=== PATIENT | female | born 1980 | race Two or more races ===

== ENCOUNTER 2021-06-09 18:12 | Emergency (ER) | payer OTHER ==
[~2021-06-09] VITALS: Ht 160 cm; Wt 102.1 kg
[2021-06-09] MEDS ORDERED: ADVIL (18:36)
== END 2021-06-09 19:22 | disposition home or self-care (01) ==
LOC: ER 18:12
DX: S99.911A Unspecified injury of right ankle, initial encounter (principal); M77.51 Other enthesopathy of right foot and ankle; X58.XXXA Exposure to other specified factors, initial encounter; Y93.9 Activity, unspecified; Y92.9 Unspecified place or not applicable; Y99.9 Unspecified external cause status

== ENCOUNTER 2023-07-10 17:22 | Emergency (ER) | payer OTHER ==
[~2023-07-10] VITALS: Ht 157.5 cm; Wt 108.9 kg
[~2023-07-10 17:22] MED LIST: ADVIL
[2023-07-10 19:34] LABS: HEMATOCRIT 38.9 % (36.0-45.00); HEMOGLOBIN 13.6 g/dL (12.0-15.00); MEAN CELL VOLUME 86.3 fL (80.00-100.00); MEAN CORPUSCULAR HEMOGLOBIN 30.3 pg (27.00-32.0); MEAN CORPUSCULAR HGB CONC 35.1 g/dl (32.0-36.0); PLATELET COUNT 235 K/uL (150-450); RED CELL DISTRIBUTION WIDTH 13.4 % (11.5-14.5)
[2023-07-10 19:53] LABS: CALCIUM 9.4 mg/dL (8.5-10.1); CREATININE SERUM 0.67 mg/dL (0.55-1.02); GFR 96.99; POTASSIUM 4.04 mEq/L (3.5-5.1)
[2023-07-10 20:38] LABS: URINE APPEARANCE Clear; URINE BILIRRUBIN Negative (NEGATIVE); URINE BLOOD Small; URINE COLOR Yellow; URINE GLUCOSE Negative (NEGATIVE); URINE LEUKOCYTE Negative; URINE NITRATE Negative; URINE PROTEIN Negative (NEGATIVE); URINE UROBILINOGEN 0.2 E.U./dl
[2023-07-10 20:42] LABS: URINE BACTERIA 883.1 uL (0.0-1933); URINE EPITHELIAL CELLS 15.5 uL (0.0-38.8); URINE RBC 19.9 uL (0.0-20.8); URINE WBC 9.2 uL (0.0-23.2)
[2023-07-10] MEDS ORDERED: DIPHENHYDRAMINE HCL 50 MG/ML VIAL 1ML IM STA (20:55)
== END 2023-07-10 21:21 | disposition home or self-care (01) ==
LOC: ER 17:22
PROVIDERS: General Practice
DX: M54.9 Dorsalgia, unspecified (principal)

== ENCOUNTER 2024-05-15 12:17 | Emergency (ER) | payer OTHER ==
[~2024-05-15] VITALS: Ht 160 cm; Wt 108.9 kg
[2024-05-15] MEDS ORDERED: ONDANSETRON HCL 2 MG/ML VIAL IV ONE (14:30)
[2024-05-15] MEDS ORDERED: FAMOTIDINE/PF 20 MG/2 ML VIAL IV ONE (14:30)
[2024-05-15] MEDS ORDERED: LACTOBACILLUS ACIDOPHILUS 1 CAP CAP PO ONE ×2 (14:30→15:13)
[2024-05-15] MEDS ORDERED: SUCRALFATE 1 G TABLET PO ONE (14:30)
[2024-05-15] MEDS ORDERED: 0.9 % SODIUM CHLORIDE 500 ML IV ONE (14:30)
[2024-05-15] MEDS ORDERED: ONDANSETRON HCL 2 MG/ML VIAL ONE (15:12)
[2024-05-15] MEDS ORDERED: FAMOTIDINE/PF 20 MG/2 ML VIAL ONE (15:13)
[2024-05-15 16:35] LABS: PH,URINE 5.5 (5.0-8.0); URINE APPEARANCE Cloudy; URINE BILIRRUBIN Small (NEGATIVE); URINE BLOOD Large; URINE COLOR Dark Yellow; URINE GLUCOSE Negative (NEGATIVE); URINE KETONE Trace (NEGATIVE); URINE LEUKOCYTE Negative; URINE NITRATE Negative; URINE PROTEIN 30 (NEGATIVE)
[2024-05-15 16:38] LABS: URINE BACTERIA 433.2 uL (0.0-1933); URINE CAST 4.86 uL (0.0-1.40); URINE EPITHELIAL CELLS 126.3 uL (0.0-38.8); URINE RBC 42.4 uL (0.0-20.8); URINE WBC 35.3 uL (0.0-23.2)
[2024-05-15 16:38] LABS: HEMATOCRIT 42.1 % (36.0-45.00); HEMOGLOBIN 14.7 g/dL (12.0-15.00); MEAN CELL VOLUME 86.5 fL (80.00-100.00); MEAN CORPUSCULAR HEMOGLOBIN 30.1 pg (27.00-32.0); MEAN CORPUSCULAR HGB CONC 34.8 g/dl (32.0-36.0); PLATELET COUNT 224 K/uL (150-450); RED BLOOD COUNT 4.87 M/uL (4.00-6.00); RED CELL DISTRIBUTION WIDTH 13.3 % (11.5-14.5)
[2024-05-15 17:02] LABS: ALBUMIN 4.1 gm/dL (3.4-5.0); BILIRUBIN TOTAL 0.54 mg/dL (0.3-1.2); CALCIUM 9.3 mg/dL (8.5-10.1); CREATININE SERUM 0.76 mg/dL (0.55-1.02); GFR 83.46; GLOBULINA 4.1 G/DL (2.4-3.5); POTASSIUM 4.03 mEq/L (3.5-5.1); TOTAL PROTEIN 8.2 gm/dL (6.4-8.2)
[2024-05-15] MEDS ORDERED: PEPCID AC20 MG PO (18:10)
[2024-05-15] MEDS ORDERED: INTESTINEX680 M1 PO (18:10)
[2024-05-15] MEDS ORDERED: CARAFATE1 GM PO ×2 (18:10→18:19)
== END 2024-05-15 18:38 ==
LOC: ER 12:19
PROVIDERS: General Practice
DX: K52.9 Noninfective gastroenteritis and colitis, unspecified (principal); R10.9 Unspecified abdominal pain